=== PATIENT | male | born 1995 | race Caucasian/White ===

== ENCOUNTER 2017-10-14 19:43 | Emergency (ER) | payer OTHER, SELFPAY ==
--- NOTE | 2017-10-14 20:07 | RAD REPORT ---
EXAM DESCRIPTION: CT - CTHCSPWOC - 10/14/2017 7:58 pm CLINICAL HISTORY: Trauma, head and neck injury. COMPARISON: None. TECHNIQUE: Axial 5 mm thick images of the head were obtained. Axial 2 mm thick images of the cervical spine were obtained with sagittal and coronal reconstruction images generated and reviewed. All CT scans are performed using dose optimization technique as appropriate and may include automated exposure control or mA/KV adjustment according to patient size. FINDINGS: CT HEAD WITHOUT CONTRAST: No acute hemorrhage, hydrocephalus or extra-axial collection is identified.No areas of brain edema or midline shift. The paranasal sinuses and mastoids are clear.The calvarium is intact. CT CERVICAL SPINE WITHOUT CONTRAST: No fracture or subluxation.No prevertebral soft tissues swelling is identified. IMPRESSION: No acute intracranial or cervical spine findings.
[2017-10-14] MEDS ORDERED: CEFAZOLIN SODIUM 1 GM/VIAL ONE (20:19)
[2017-10-14] MEDS ORDERED: TETANUS & DIPHTHERIA TOX,ADULT 0.5 ML VIAL ONE (20:20)
[2017-10-14] MEDS ORDERED: WATER FOR INJ,STERILE 10 ML ONE (20:22)
[2017-10-14] MEDS ORDERED: LIDOCAINE 1% 20 ML MDV ONE (20:43)
--- NOTE | 2017-10-14 21:09 | RAD REPORT ---
EXAM DESCRIPTION: CT - CTFB CLINICAL HISTORY: Trauma, facial pain and injury. COMPARISON: None. TECHNIQUE: Axial 2 mm thick images of the face were obtained with sagittal and coronal reconstructio n images. All CT scans are performed using dose optimization technique as appropriate and may include automated exposure control or mA/KV adjustment according to patient size. FINDINGS: Slight nasal bone deformity is noted, age uncertain.Elsewhere, no facial bone fracture see n.The mandible is intact. The globes and orbital contents are grossly unremarkable.The paranasal sinuses and mastoids are essen tially clear. IMPRESSION: Mild nasal bone for deformity is seen, age uncertain.Advise correlation with clinical po int tenderness in this region. Elsewhere, no evidence of acute facial fracture seen.
--- NOTE | 2017-10-14 23:19 | ER ---
Nurse's Notes [facility] Name: Ramón Mast Age: 22 yrs Sex: Male : 1995 Arrival Date: 10/14/2017 Time: 19:44 Bed 25 Private MD: Diagnosis: Other specified injuries of head;Contusion of unspecified part of head Presentation: 10/14 19:53 Presenting complaint: Friend states: "He got bucked from a horse and doesn't remember lk1 it. His head is bleeding." LOC for 2 minutes. Care prior to arrival: None. Mechanism of Injury: Fall from horse, approximately 4 ft. Trauma event details: Injury occurred in the [facility], Injury occurred: at home. Injury occurred: October 14, 2017 Injury occurred at: 19:15. 19:53 Acuity: VANESA 2 lk1 19:53 Method Of Arrival: Wheelchair lk1 21:18 Transition of care: patient was not received from another setting of care. Onset of rk2 symptoms was October 14, 2017. Risk Assessment: Do you want to hurt yourself or someone else? Patient reports no desire to harm self or others. Initial Sepsis Screen: Does the patient meet any 2 criteria? No. Patient's initial sepsis screen is negative. Does the patient have a suspected source of infection? No. Patient's initial sepsis screen is negative. Triage Assessment: 21:15 General: Appears in no apparent distress. uncomfortable, well developed, well rk2 nourished, Behavior is calm, cooperative. Pain:. Neuro: Level of Consciousness is alert, obeys commands, Oriented to person, place, time. Respiratory: Airway is patent Respiratory effort is even, unlabored, Respiratory pattern is regular, symmetrical. Derm: Skin is pink, warm \\T\\ dry. Injury Description: Laceration sustained to face. Historical: - Allergies: 21:20 No Known Allergies; rk2 - Home Meds: 21:20 None [Active]; rk2 - Immunization history:: Last tetanus immunization: up to date. - Social history:: Smoking status: unknown. Screenin:14 Abuse screen: Denies threats or abuse. Nutritional screening: No deficits noted. rk2 Tuberculosis screening: No symptoms or risk factors identified. Fall Risk None identified. Primary Survey: 19:55 A: Airway: patent. Breathing/Chest: Respiratory pattern: regular, Respiratory effort: lk1 spontaneous, unlabored, Chest inspection: symmetrical rise and fall of the chest. Circulation: Pulses: palpable right radial artery, right brachial artery, right dorsalis pedis artery, left radial artery, left brachial artery and left dorsalis pedis artery. Skin color: pink, Skin temperature: warm, dry. Circulation: Heart tones present. Disability Alert. Assessment: 20:00 Reassessment: Pt. taken to CT. rk2 21:57 Reassessment: Patient appears in no apparent distress at this time. No changes from rk2 previously documented assessment. Patient and/or family updated on plan of care and expected duration. Pain level reassessed. 23:00 Reassessment: Patient appears in no apparent distress at this time. No changes from rk2 previously documented assessment. Facial lac irrigated and sutures to be placed by Silverio. Vital Signs: 19:56 BP 156 / 73; Pulse 74; Resp 20; Temp 99.1(O); Pulse Ox 97% on R/A; Weight 113.4 kg (R); lk1 Height 6 ft. 3 in. (190.50 cm) (R); Pain 3/10; 21:56 BP 156 / 73; Pulse 67; Resp 17; Pulse Ox 99% on R/A; rk2 23:32 BP 125 / 48; Pulse 61; Resp 17; Pulse Ox 97% on R/A; rk2 19:56 Body Mass Index 31.25 (113.40 kg, 190.50 cm) lk1 Richards Coma Score: 19:56 Eye Response: spontaneous(4). Verbal Response: oriented(5). Motor Response: obeys lk1 commands(6). Total: 15. Trauma Score (Adult): 19:56 Eye Response: spontaneous(1); Verbal Response: oriented(1); Motor Response: obeys lk1 commands(2); Systolic BP: > 89 mm Hg(4); Respiratory Rate: 10 to 29 per min(4); Richards Score: 15; Trauma Score: 12 ED Course: 19:44 Patient arrived in ED. am2 19:48 Andrew Monson MD is Attending Physician. rg2 19:51 Ro Mcneal, RN is Primary Nurse. rk2 19:55 Triage completed. lk1 19:[address] vm2 19:57 Arm band placed on right wrist. lk1 19:58 CT completed. Patient tolerated procedure well. Patient moved back from CT. vm2 19:59 Head C Spine Mpr Wo Con In Process Unspecified. EDMS 20:[address] via wheelchair. mw3 20:56 CT completed. Patient tolerated procedure well. Patient moved back from CT. nj 20:56 Facial Bones W/ Mpr In Process Unspecified. EDMS 21:14 Patient has correct armband on for positive identification. Placed in gown. Bed in low rk2 position. Call light in reach. Adult w/ patient. 23:02 Silverio Ace NP is PHCP. pm1 23:44 Assist provider with laceration repair on face, above right eye. Patient did not have rk2 IV access during this emergency room visit. Administered Medications: 20:27 Drug: Ancef 1 grams Route: IM; Site: left vastus lateralis; rk2 23:30 Follow up: Response: No adverse reaction rk2 20:28 Not Given (Pt. has had recent tetanus/diptheria/T shot): Tetanus-Diphtheria Toxoid rk2 Adult 0.5 ml IM once 23:29 Drug: Tylenol 1000 mg Route: PO; rk2 23:30 Follow up: given \\T\\ DC rk2 23:30 Not Given (Pt. had taken ibupropfen of his own, about 5 min before): Motrin 800 mg PO rk2 once Intake: 19:56 PO: 0ml; Total: 0ml. lk1 Output: 19:56 Urine: 0ml; Total: 0ml. lk1 Outcome: 23:19 Discharge ordered by . tw4 23:45 Discharged to home rk2 23:45 Discharged to home ambulatory. 23:45 Condition: improved 23:45 Discharge instructions given to patient, Prescriptions given X 2. 23:46 Patient left the ED. rk2 Signatures: Dispatcher [employer] EDMS Keon العلي 2 Miriam Guzmán RN RN lk1 Silverio Ace NP PLASTER LATHER pm1 Eduardo Santos Amanda am2 McGuire, Victoria 2 Andrew Monson MD MD tw4 Ro Mcneal RN RN rk2 Jasmine Kraus mw3 Corrections: (The following items were deleted from the chart) 19:55 19:54 To radiology for Head Brain Wo Cont+CT.RAD.BRZ. rk2 EDMS 19:56 19:54 To radiology for C Spine Wo Con+CT.RAD.BRZ. rk2 EDMS
--- NOTE | 2017-10-14 23:20 | EDPHYS ---
Physician Documentation [facility] Name: Ramón Mast Age: 22 yrs Sex: Male : 1995 Arrival Date: 10/14/2017 Time: 19:44 Bed 25 Private MD: ED Physician Andrew Monson HPI: 10/14 23:10 This 22 yrs old Male presents to ER via Wheelchair with complaints of Fall tw4 Injury, Altered Mental Status, Facial Injury. 23:10 Details of fall: The patient fell from a height, horse. Onset: The symptoms/episode tw4 began/occurred today. Associated injuries: The patient sustained injury to the head, laceration, 4 cm(s), of the lateral canthus of right eye. Severity of symptoms: At their worst the symptoms were moderate, in the emergency department the symptoms have improved. positive LOC. Historical: - Allergies: 21:20 No Known Allergies; rk2 - Home Meds: 21:20 None [Active]; rk2 - Immunization history:: Last tetanus immunization: up to date. - Social history:: Smoking status: unknown. ROS: 23:10 Constitutional: Negative for fever, chills, and weight loss, Cardiovascular: Negative tw4 for chest pain, palpitations, and edema, Respiratory: Negative for shortness of breath, cough, wheezing, and pleuritic chest pain, Abdomen/GI: Negative for abdominal pain, nausea, vomiting, diarrhea, and constipation, MS/Extremity: Negative for injury and deformity. 23:10 Skin: Positive for laceration(s), Negative for abrasions, abscesses, avulsion, cellulitis, diaphoresis, discoloration, ecchymosis, erythema, hematoma. 23:10 Neuro: Positive for loss of consciousness, Negative for altered mental status, dizziness, gait disturbance, headache, hearing loss, numbness, seizure activity, speech changes. Exam: 23:10 Constitutional: This is a well developed, well nourished patient who is awake, alert, tw4 and in no acute distress. 23:10 Chest/axilla: Normal chest wall appearance and motion. Nontender with no deformity. No lesions are appreciated. Cardiovascular: Regular rate and rhythm with a normal S1 and S2. No gallops, murmurs, or rubs. Normal PMI, no JVD. No pulse deficits. Respiratory: Lungs have equal breath sounds bilaterally, clear to auscultation and percussion. No rales, rhonchi or wheezes noted. No increased work of breathing, no retractions or nasal flaring. Abdomen/GI: Soft, non-tender, with normal bowel sounds. No distension or tympany. No guarding or rebound. No evidence of tenderness throughout. MS/ Extremity: Pulses equal, no cyanosis. Neurovascular intact. Full, normal range of motion. Neuro: Awake and alert, GCS 15, oriented to person, place, time, and situation. Cranial nerves II-XII grossly intact. Motor strength 5/5 in all extremities. Sensory grossly intact. Cerebellar exam normal. Normal gait. 23:10 Head/face: Noted is a laceration(s), that is deep, that is jagged, 4 cm(s), of the lateral canthus of right eye. Vital Signs: 19:56 BP 156 / 73; Pulse 74; Resp 20; Temp 99.1(O); Pulse Ox 97% on R/A; Weight 113.4 kg (R); lk1 Height 6 ft. 3 in. (190.50 cm) (R); Pain 3/10; 21:56 BP 156 / 73; Pulse 67; Resp 17; Pulse Ox 99% on R/A; rk2 23:32 BP 125 / 48; Pulse 61; Resp 17; Pulse Ox 97% on R/A; rk2 19:56 Body Mass Index 31.25 (113.40 kg, 190.50 cm) lk1 Henrry Coma Score: 19:56 Eye Response: spontaneous(4). Verbal Response: oriented(5). Motor Response: obeys lk1 commands(6). Total: 15. Trauma Score (Adult): 19:56 Eye Response: spontaneous(1); Verbal Response: oriented(1); Motor Response: obeys lk1 commands(2); Systolic BP: > 89 mm Hg(4); Respiratory Rate: 10 to 29 per min(4); [place] Score: 15; Trauma Score: 12 Laceration: 23:03 Wound Repair of 3cm ( 1.2in ) subcutaneous laceration to lateral aspect of right pm1 orbital area. Irregularly shaped.. Distal neuro/vascular/tendon intact. Anesthesia: Local anesthetic administered with 2 mls of 1% lidocaine. Wound prep: Extensive cleansing by me, Wound irrigation by me, Wound explored extensively, Copious irrigation. Skin closed with 7 6-0 Prolene using simple sutures and sterile technique. Patient tolerated well. MDM: 19:50 Patient medically screened. tw4 23:10 Differential diagnosis: closed head injury, fracture, laceration, multiple trauma. Data tw4 reviewed: vital signs, nurses notes. Counseling: I had a detailed discussion with the patient and/or guardian regarding: the historical points, exam findings, and any diagnostic results supporting the discharge/admit diagnosis, radiology results. 23:17 Special discussion: Based on the patient's history, exam and DX evaluation, there is no tw4 indication for emergent intervention or inpatient TX. It is understood by the patient/guardian that if the SXs persist or worsen they need to return immediately for re-evaluation. I discussed with the patient/guardian in detail that at this point there is no indication for admission to the hospital. It is understood, however, that if the symptoms persist or worsen the patient needs to return immediately for re-evaluation. ED course: Pt states that he feels well. 10/14 19:55 Order name: Head C Spine Mpr Wo Con; Complete Time: 23:10 EDMS 10/14 20:16 Order name: Facial Bones W/ Mpr; Complete Time: 23:10 EDMS Administered Medications: 20:27 Drug: Ancef 1 grams Route: IM; Site: left vastus lateralis; rk2 23:30 Follow up: Response: No adverse reaction rk2 20:28 Not Given (Pt. has had recent tetanus/diptheria/T shot): Tetanus-Diphtheria Toxoid rk2 Adult 0.5 ml IM once 23:29 Drug: Tylenol 1000 mg Route: PO; rk2 23:30 Follow up: given \T\ DC rk2 23:30 Not Given (Pt. had taken ibupropfen of his own, about 5 min before): Motrin 800 mg PO rk2 once Disposition: 23:17 Co-signature as Attending Physician, Andrew Monson MD I agree with the assessment and tw4 plan of care. Disposition: 10/14/17 23:19 Discharged to Home. Impression: Other specified injuries of head, Contusion of unspecified part of head. - Condition is Stable. - Discharge Instructions: Head Injury, Adult, Facial Laceration, [id number], Head Injury, Adult, [id number]. - Prescriptions for Clindamycin HCl 300 mg Oral Capsule - take 1 capsule by ORAL route every 6 hours for 10 days; 40 capsule. Ibuprofen 800 mg Oral Tablet - take 1 tablet by ORAL route every 8 hours As needed take with food; 30 tablet. - Medication Reconciliation Form, Thank You Letter, Antibiotic Education, Prescription Opioid Use form. - Follow up: Private Physician; When: As needed; Reason: Recheck today's complaints, Continuance of care, Re-evaluation by your physician. - Problem is new. - Symptoms have improved. Signatures: Dispatcher [employer] EDMS Silverio Ace, VENDING MACHINE TECHNICIAN VENDING MACHINE TECHNICIAN pm1 Andrew Monson MD MD tw4 Ro Mcneal RN RN rk2 Corrections: (The following items were deleted from the chart) 19:55 19:51 Head Brain Wo Cont+CT.RAD.BRZ ordered. EDME EDMS 19:56 19:51 C Spine Wo Con+CT.RAD.BRZ ordered. EDME EDMS 20:16 20:12 Maxillofacial W/Wo+CT.RAD.BRZ ordered. EDME EDMS 23:46 23:19 10/14/2017 23:19 Discharged to Home. Impression: Other specified injuries of rk2 head; Contusion of unspecified part of head. Condition is Stable. Forms are Medication Reconciliation Form, Thank You Letter, Antibiotic Education, Prescription Opioid Use. Follow up: Private Physician; When: As needed; Reason: Recheck today's complaints, Continuance of care, Re-evaluation by your physician. Problem is new. Symptoms have improved. tw4
[2017-10-14] MEDS ORDERED: IBUPROFEN 400 MG TAB ONE (23:27)
[2017-10-14] MEDS ORDERED: ACETAMINOPHEN 500 MG TAB ONE (23:27)
== END 2017-10-14 23:46 | disposition home or self-care (01) ==
LOC: ER 19:43
PROC: 0JQ10ZZ Repair Face Subcutaneous Tissue and Fascia, Open Approach (ICD-10-PCS; principal; 2017-10-14)
DX: S05.41XA Penetrating wound of orbit with or without foreign body, right eye, initial encounter (principal); V80.010A Animal-rider injured by fall from or being thrown from horse in noncollision accident, initial encounter; Y93.9 Activity, unspecified; Y92.9 Unspecified place or not applicable; Z23 Encounter for immunization
CPT/HCPCS: 70450; 70486; 72125; 76377; 90714; 96372; 99284; J0690

== ENCOUNTER 2021-06-27 13:45 | Emergency (ER) | payer SELFPAY ==
[2021-06-27 15:19] LABS: Albumin 3.9 g/dL (3.4-5.0); Bilirubin Direct 0.1 mg/dL (0-0.2); Bilirubin Total 0.6 mg/dL (0.2-1.0); Hematocrit 42.4 % (39.6-49.0); Lymphocytes % 41.3 % (15.3-44.8); MPV 9.9 fL (7.6-11.3); Potassium 3.9 mmol/L (3.5-5.1); Protein, Total 7.5 g/dL (6.4-8.2); RBC Red Blood Cell Count 4.86 M/uL (4.33-5.43); Troponin High Sensitivity 7.6 pg/mL (<58.9)
[2021-06-27 15:20] LABS: Protime INR 1.07
--- NOTE | 2021-06-27 15:26 | RAD REPORT ---
EXAM DESCRIPTION: RAD - Chest Single View - 06/27/2021 3:16 pm CLINICAL HISTORY: CHEST PAIN Chest pain. COMPARISON: Chest Pa And Lat (2 Views) dated 12/13/2015 FINDINGS: Portable technique limits examination quality. The lungs are grossly clear. The heart is normal in size. No displaced fractures. IMPRESSION: No acute intrathoracic process suspected.
--- NOTE | 2021-06-27 18:12 | ER ---
Nurse's Notes [facility] Name: Ramón Mast Age: 25 yrs Sex: Male : 1995 Arrival Date: 06/27/2021 Time: 13:48 Bed 10 Private MD: Diagnosis: Chest pain, unspecified Presentation: 06/27 13:59 Chief complaint: Patient states: Chest pain X 1 day - Comes and goes. Hurts when move ld1 right arm or bend down. Coronavirus screen: At this time, the client does not indicate any symptoms associated with coronavirus-19. Ebola Screen: No symptoms or risks identified at this time. Initial Sepsis Screen: Does the patient meet any 2 criteria? Yes No. Patient's initial sepsis screen is negative. Does the patient have a suspected source of infection? No. Patient's initial sepsis screen is negative. Risk Assessment: Do you want to hurt yourself or someone else? Patient reports no desire to harm self or others. Onset of symptoms was June 27, 2021. 13:59 Method Of Arrival: Ambulatory ld1 13:59 Acuity: VANESA 3 ld1 Triage Assessment: 14:00 General: Appears in no apparent distress. comfortable, Behavior is calm, cooperative, ld1 appropriate for age. Pain: Complains of pain in chest Pain does not radiate. Pain currently is 0 out of 10 on a pain scale. at worst was 8 out of 10 on a pain scale. Quality of pain is described as sharp, Pain began 3 hours ago. Is intermittent. Neuro: Level of Consciousness is awake, alert, obeys commands, Oriented to person, place, time, situation. Cardiovascular: Capillary refill < 3 seconds Patient's skin is warm and dry. Rhythm is regular. Respiratory: Airway is patent Respiratory effort is even, unlabored, Respiratory pattern is regular, symmetrical. Historical: - Allergies: 14:00 No Known Allergies; ld1 - Home Meds: 14:00 None [Active]; ld1 - PMHx: 14:00 None; ld1 - Immunization history:: Adult Immunizations up to date, Client reports having NOT received the Covid vaccine. - Social history:: Smoking status: Reported history of juuling and/or vaping. Patient uses alcohol, occasionally. Screenin:30 Abuse screen: Denies threats or abuse. Denies injuries from another. Nutritional ww screening: No deficits noted. Tuberculosis screening: No symptoms or risk factors identified. Fall Risk None identified. Assessment: 14:30 General: Appears in no apparent distress. Behavior is calm, cooperative. Pain: ww Complains of pain in mid-sternal area Pain radiates to anterior aspect of right upper chest and right breast. Neuro: Level of Consciousness is awake, alert, obeys commands, Oriented to person, place, time, situation, Speech is normal. Cardiovascular: Reports chest pain, Capillary refill < 3 seconds Patient's skin is warm and dry. Chest pain quality is sharp, is located in substernal area radiates to right. Respiratory: Airway is patent Respiratory effort is even, unlabored, Respiratory pattern is regular, symmetrical. GI: No signs and/or symptoms were reported involving the gastrointestinal system. : No signs and/or symptoms were reported regarding the genitourinary system. Derm: Skin is intact, is healthy with good turgor, Skin is pink, warm \T\ dry. 15:41 Reassessment: Patient appears in no apparent distress at this time. No changes from ww previously documented assessment. Patient and/or family updated on plan of care and expected duration. Pain level reassessed. Patient is alert, oriented x 3, equal unlabored respirations, skin warm/dry/pink. 16:56 Reassessment: Patient appears in no apparent distress at this time. No changes from ww previously documented assessment. Patient and/or family updated on plan of care and expected duration. Pain level reassessed. Patient is alert, oriented x 3, equal unlabored respirations, skin warm/dry/pink. 17:40 Reassessment: Patient appears in no apparent distress at this time. No changes from ww previously documented assessment. Patient and/or family updated on plan of care and expected duration. Pain level reassessed. Patient is alert, oriented x 3, equal unlabored respirations, skin warm/dry/pink. Vital Signs: 13:59 BP 144 / 76; Pulse 62; Resp 18; Temp 98.4(O); Pulse Ox 97% on R/A; Weight 141.52 kg; ld1 Height 6 ft. 2 in. (187.96 cm); Pain 0/10; 16:53 BP 131 / 64; Pulse 55; Resp 18; Pulse Ox 99% on R/A; ww 13:59 Body Mass Index 40.06 (141.52 kg, 187.96 cm) ld1 ED Course: 13:48 Patient arrived in ED. mr 14:00 Triage completed. ld1 14:00 Arm band placed on left wrist. ld1 14:03 Joseph Peterson PA is PHCP. cp 14:03 Rodrigo Richardson MD is Attending Physician. cp 14:30 Patient has correct armband on for positive identification. Placed in gown. Bed in low ww position. Call light in reach. Side rails up X 1. Adult w/ patient. school bus monitor on. Pulse ox on. NIBP on. 14:30 No provider procedures requiring assistance completed. Inserted saline lock: 20 gauge ww in left antecubital area, using aseptic technique. Blood collected. Patient maintains SpO2 saturation greater than 95% on room air. 14:40 Dede Powers, RN is Primary Nurse. ww 15:16 XRAY Chest (1 view) In Process Unspecified. EDMS 18:19 intact, bleeding controlled, No redness/swelling at site. Pressure dressing applied. ww Administered Medications: No medications were administered Outcome: 18:05 Discharge ordered by . cp 18:19 Discharged to home ambulatory, with family. ww 18:19 Condition: stable 18:19 Discharge instructions given to patient, family, Instructed on discharge instructions, follow up and referral plans. medication usage, safety practices, Demonstrated understanding of instructions, follow-up care, medications, Prescriptions given X 1. 18:19 Patient left the ED. ww Signatures: Dispatcher [employer] EDDC Mary Liriano mr Joseph Peterson PA PA cp Dibbern, Lauren, RN RN ld1 Dede Powers, RN RN ww
--- NOTE | 2021-06-27 18:12 | EDPHYS ---
Physician Documentation [facility] Name: Ramón Mast Age: 25 yrs Sex: Male : 1995 Arrival Date: 06/27/2021 Time: 13:48 Bed 10 Private MD: ED Physician Rodrigo Richardson HPI: 06/27 14:45 This 25 yrs old Male presents to ER via Ambulatory with complaints of Chest cp Pain. 14:45 The patient or guardian reports chest pain that is located primarily in the substernal cp area. 14:45 The pain radiates to right side of chest. cp 14:45 Associated signs and symptoms: Pertinent positives: shortness of breath, Pertinent cp negatives: abdominal pain, cough, diaphoresis, dizziness, lower extremity pain, lower extremity swelling, syncope. The chest pain is described as aching. Duration: The patient or guardian reports multiple episodes, that wax and wane. Modifying factors: the symptoms are aggravated by leaning forward and lifting/raising right arm. 14:45 Severity of pain: in the emergency department the pain has improved moderately. cp Historical: - Allergies: 14:00 No Known Allergies; ld1 - Home Meds: 14:00 None [Active]; ld1 - PMHx: 14:00 None; ld1 - Immunization history:: Adult Immunizations up to date, Client reports having NOT received the Covid vaccine. - Social history:: Smoking status: Reported history of juuling and/or vaping. Patient uses alcohol, occasionally. ROS: 14:50 Constitutional: Negative for body aches, chills, fever, poor PO intake. cp 14:50 Eyes: Negative for injury, pain, redness, and discharge. cp 14:50 ENT: Negative for drainage from ear(s), ear pain, sore throat, difficulty swallowing, difficulty handling secretions. 14:50 Cardiovascular: Positive for chest pain, of the mid-sternal area radiating to right side, Negative for edema, palpitations. 14:50 Respiratory: Negative for cough, shortness of breath, wheezing. 14:50 Abdomen/GI: Negative for abdominal pain, nausea, vomiting, and diarrhea. 14:50 Back: Negative for pain at rest, pain with movement, radiated pain. 14:50 Neuro: Negative for altered mental status, headache, syncope, weakness. 14:50 All other systems are negative. Exam: 14:33 ECG was reviewed by the Attending Physician. cp 14:55 Constitutional: The patient appears in no acute distress, alert, awake, cp non-diaphoretic, non-toxic, well developed, well nourished. 14:55 Head/Face: Normocephalic, atraumatic. cp 14:55 Eyes: Periorbital structures: appear normal, Conjunctiva: normal, no exudate, no injection, Sclera: no appreciated abnormality, Lids and lashes: appear normal, bilaterally. 14:55 ENT: External ear(s): are unremarkable, Nose: is normal, Mouth: Lips: moist, Oral mucosa: pink and intact, moist, Posterior pharynx: Airway: no evidence of obstruction, patent. 14:55 Neck: ROM/movement: is normal, is supple, without pain, no range of motions limitations. 14:55 Chest/axilla: Inspection: normal, Palpation: crepitus, is not appreciated, tenderness, that is mild, of the anterior aspect of right upper chest and right breast. 14:55 Cardiovascular: Rate: normal, Rhythm: regular, Heart sounds: murmur, not appreciated, Edema: is not appreciated, JVD: is not appreciated. 14:55 Respiratory: the patient does not display signs of respiratory distress, Respirations: normal, no use of accessory muscles, no retractions, labored breathing, is not present, Breath sounds: are clear throughout, no decreased breath sounds, no stridor, no wheezing. 14:55 Abdomen/GI: Inspection: abdomen appears normal, Palpation: abdomen is soft and non-tender, in all quadrants. 14:55 Back: pain, is absent, ROM is normal. 14:55 Neuro: Orientation: to person, place \T\ time. Mentation: is normal, Motor: moves all fours, strength is normal, Sensation: is normal. Vital Signs: 13:59 BP 144 / 76; Pulse 62; Resp 18; Temp 98.4(O); Pulse Ox 97% on R/A; Weight 141.52 kg; ld1 Height 6 ft. 2 in. (187.96 cm); Pain 0/10; 16:53 BP 131 / 64; Pulse 55; Resp 18; Pulse Ox 99% on R/A; ww 13:59 Body Mass Index 40.06 (141.52 kg, 187.96 cm) ld1 MDM: 14:04 Patient medically screened. cp 15:00 Differential diagnosis: acute myocardial infarction, acute pericarditis, chest wall cp pain, cholecystitis, Cholelithiasis costochondritis, pericarditis, pleurisy, pneumonia, pneumothorax, pulmonary embolus. 18:05 Data reviewed: vital signs, nurses notes, lab test result(s), EKG, radiologic studies, cp plain films. 18:05 Test interpretation: by ED physician or midlevel provider: ECG, plain radiologic cp studies. Counseling: I had a detailed discussion with the patient and/or guardian regarding: the historical points, exam findings, and any diagnostic results supporting the discharge/admit diagnosis, lab results, radiology results, to return to the emergency department if symptoms worsen or persist or if there are any questions or concerns that arise at home. Special discussion: Based on the patient's history, exam, and Dx evaluation, there is no indication for emergent intervention or inpatient Tx. It is understood by the patient/guardian that if the Sx's persist or worsen they need to return immediately for re-evaluation. ED course: VSS. Patient denies family history of cardiac disease and/or early cardiac . Pain improved. Will treat with NSAIDs and discharge to home for continued monitoring. 06/27 14:35 Order name: D-Dimer 06/27 14:35 Order name: XRAY Chest (1 view); Complete Time: 17:10 06/27 17:12 Interpretation: Report reviewed. 06/27 14:35 Order name: EKG; Complete Time: 14:54 06/27 14:35 Order name: Cardiac monitoring; Complete Time: 14:51 06/27 14:53 Order name: Basic Metabolic Panel; Complete Time: 17:10 EDMS 06/27 17:10 Interpretation: Normal except: BUN 21; GFR 81. 06/27 14:53 Order name: Liver (Hepatic) Function; Complete Time: 17:10 EDMS 06/27 17:10 Interpretation: Normal except: GLOB 3.6. cp 06/27 14:53 Order name: Troponin High Sensitivity; Complete Time: 17:10 EDMS 06/27 17:11 Interpretation: Within normal limits: Troponin HS 7.60. 06/27 14:53 Order name: CBC with Automated Diff; Complete Time: 17:10 EDWV 06/27 18:08 Interpretation: Reviewed. cp 06/27 14:53 Order name: Protime (+INR); Complete Time: 17:10 EDWV 06/27 14:35 Order name: EKG - Nurse/Tech; Complete Time: 14:40 cp 06/27 14:35 Order name: IV Saline Lock; Complete Time: 14:40 cp 06/27 14:35 Order name: Labs collected and sent; Complete Time: 14:41 cp 06/27 14:35 Order name: O2 Per Protocol; Complete Time: 14:41 cp 06/27 14:35 Order name: O2 Sat Monitoring; Complete Time: 14:41 cp EC:33 Rate is 56 beats/min. Rhythm is regular. ND interval is normal. QRS interval is normal. cp QT interval is normal. Interpreted by me. Reviewed by me. Administered Medications: No medications were administered Disposition Summary: 06/27/21 18:05 Discharge Ordered Location: Home cp Problem: new cp Symptoms: have improved cp Condition: Stable cp Diagnosis - Chest pain, unspecified cp Followup: cp - With: Private Physician - When: 2 - 3 days - Reason: Worsening of condition Discharge Instructions: - Discharge Summary Sheet cp - Nonspecific Chest Pain, Adult cp Forms: - Medication Reconciliation Form cp - Thank You Letter cp - Antibiotic Education cp - Prescription Opioid Use cp Prescriptions: - Diclofenac Sodium 75 mg Oral Tablet Sustained Release - take 1 tablet by ORAL route 2 times per day; 30 tablet; Refills: 0, Product cp Selection Permitted Addendum: 07/01/2021 07:08 Co-signature as Attending Physician, Rodrigo Richardson MD I agree with the assessment and r n plan of care. Attestation: The patient's history, exam findings, diagnostics, and a summary of any interventions or procedures was reviewed in detail with Joseph UMAÑA. Signatures: Dispatcher [employer] Rodrigo Demarco MD MD rn Page, Corey, PA PA cp Yohana Cadena RN RN ld1 Corrections: (The following items were deleted from the chart) 06/27 18:09 14:54 BASIC METABOLIC PANEL+C.LAB.BRZ ordered. EDWV EDMS 18:09 14:54 CBC+H.LAB.BRZ ordered. EDWV EDMS 18:09 14:54 HEPATIC FUNCTION+C.LAB.BRZ ordered. EDMS EDMS 14:54 PROTIME (+INR)+COAG.LAB.BRZ ordered. EDMS EDMS :54 Troponin High Sensitivity+C.LAB.BRZ ordered. EDMS EDMS
[2021-06-27 19:03] VITALS: TEMP 98.4
[2021-06-27 19:05] VITALS: BP 131/64; O2SAT 99
--- NOTE | 2021-06-28 13:06 | EKG ---
Test Date: 2021-06-27 Test Time: 14:28:21 Touch Up Worker: GEMINI MEASUREMENT RESULTS: Intervals: Rate: 56 KS: 154 QRSD: 92 QT: 394 QTc: 380 [place]: P: 30 KS: 154 QRS: 68 T: 37 INTERPRETIVE STATEMENTS: Sinus bradycardia Nonspecific ST and T wave abnormality Abnormal ECG Compared to ECG 12/13/2015 19:02:16 ST (T wave) deviation now present Sinus rhythm no longer present Sinus arrhythmia no longer present T-wave abnormality no longer present Electronically Signed On 06-28-21 13:03:13 DRY ROOM ATTENDANT by Janusz Macias
== END 2021-06-27 18:19 | disposition home or self-care (01) ==
LOC: ER 13:45
DX: R07.9 Chest pain, unspecified (principal); Z72.0 Tobacco use
CPT/HCPCS: 36415; 71045; 80048; 80076; 84484; 85025; 85379; 85610; 93005; 99285

== ENCOUNTER 2024-08-01 20:40 | Emergency (ER) | payer OTHER, SELFPAY ==
--- NOTE | 2024-08-01 21:28 | ER ---
Nurse's Notes [facility] Name: Ramón Mast Age: 28 yrs Sex: Male : 1995 Arrival Date: 08/01/2024 Time: 20:40 Bed DX4 Private MD: Diagnosis: Acute pharyngitis, unspecified Presentation: 08/01 21:20 Chief complaint: Patient states: pressure under my ear, it's mildly tender , was on a iw steroid pack prescribed by urgent care, they said it was from my throat, when i swallow i fell pressure on that side. Coronavirus screen: At this time, the client does not indicate any symptoms associated with coronavirus-19. Ebola Screen: No symptoms or risks identified at this time. Initial Sepsis Screen: Does the patient meet any 2 criteria? No. Patient's initial sepsis screen is negative. Does the patient have a suspected source of infection? No. Patient's initial sepsis screen is negative. Risk Assessment: Do you want to hurt yourself or someone else? Patient reports no desire to harm self or others. Onset of symptoms was July 29, 2024. 21:20 Method Of Arrival: Ambulatory iw 21:20 Acuity: VANESA 3 iw Historical: - Allergies: 21:22 No Known Allergies; iw - Home Meds: 21:22 None [Active]; iw - PMHx: 21:22 None; iw - PSHx: 21:22 None; iw - Immunization history:: Adult Immunizations not up to date. - Infectious Disease History:: Denies. - Social history:: Smoking status: Reported history of juuling and/or vaping. - Family history:: not pertinent. Screenin:57 [facility] ED Fall Risk Assessment (Adult) History of falling in the last 3 months, ha1 including since admission No falls in past 3 months (0 pts) Confusion or Disorientation No (0 pts) Intoxicated or Sedated No (0 pts) Impaired Gait No (0 pts) Mobility Assist Device Used No (0 pt) Altered Elimination No (0 pt) Score/Fall Risk Level 0 - 2 = Low Risk Oriented to surroundings, Maintained a safe environment, Educated pt \T\ family on fall prevention, incl call for assistance when getting out of bed, Hourly rounding (assess needs \T\ fall precautionary measures) done. Abuse screen: Denies threats or abuse. Denies injuries from another. Nutritional screening: No deficits noted. Tuberculosis screening: No symptoms or risk factors identified. Assessment: 21:40 General: Appears comfortable, Behavior is calm, cooperative. Pain: Complains of pain in ha1 sore throat Pain does not radiate. Pain currently is 6 out of 10 on a pain scale. Neuro: Level of Consciousness is awake, alert, obeys commands, Oriented to person, place, time, situation. Cardiovascular: Capillary refill < 3 seconds Patient's skin is warm and dry. Respiratory: Airway is patent Respiratory effort is even, unlabored, Respiratory pattern is regular, symmetrical. GI: No signs and/or symptoms were reported involving the gastrointestinal system. : No signs and/or symptoms were reported regarding the genitourinary system. Vital Signs: 21:20 BP 139 / 85; Pulse 62; Resp 16; Temp 97.6; Pulse Ox 100% on R/A; Weight 117.93 kg; iw Height 6 ft. 2 in. ; Pain 8/10; 21:20 Body Mass Index 33.38 (117.93 kg, 187.96 cm) iw 21:20 Pain Scale: Adult iw ED Course: 20:50 Patient arrived in ED. im 20:53 Shashank Lara MD is Attending Physician. rt 21:18 Arm band placed on right wrist. ha1 21:18 Patient has correct armband on for positive identification. Call light in reach. Side ha1 rails up X 1. Adult w/ patient. 21:22 Triage completed. iw 21:30 Provided Education on: medication administration . ha1 21:57 No provider procedures requiring assistance completed. Patient did not have IV access ha1 during this emergency room visit. Administered Medications: 21:50 Drug: Amoxicillin PO 875 mg PO once Route: PO; ha1 22:06 Follow up: Response: No adverse reaction ha1 Medication: 21:58 VIS not applicable for this client. ha1 Outcome: 21:28 Discharge ordered by . rt 21:57 Discharged to home ambulatory, with family, ha1 21:57 Condition: stable 21:57 Discharge instructions given to patient, family, Instructed on discharge instructions, follow up and referral plans. medication usage, Demonstrated understanding of instructions, follow-up care, medications, Prescriptions given X 1, 22:07 Patient left the ED. ha1 Signatures: Tyesha Larsen RN RN iw Joan Hale RN RN ha1 Shashank Lara MD MD rt Shanae Stephens
--- NOTE | 2024-08-01 21:28 | EDPHYS ---
Physician Documentation [facility] Name: Ramón Mast Age: 28 yrs Sex: Male : 1995 Arrival Date: 08/01/2024 Time: 20:40 Bed DX4 Private MD: ED Physician Shashank Lara HPI: 08/02 03:34 This 28 yrs old Male presents to ER via Ambulatory with complaints of Facial Swelling. rt 03:34 Patient presents to the ED with pain to the right side of the jaw just beneath the ear rt worse when he opens his mouth. Reports a mild sore throat. Was seen at urgent care, was given steroids initially improved his symptoms, now states that they are worsening. Denies ear pain, other acute complaints, symptoms are mild in severity, aching nature, nonradiating, no other aggravating or alleviating factors.. Historical: - Allergies: 08/01 21:22 No Known Allergies; iw - Home Meds: 21:22 None [Active]; iw - PMHx: 21:22 None; iw - PSHx: 21:22 None; iw - Immunization history:: Adult Immunizations not up to date. - Infectious Disease History:: Denies. - Social history:: Smoking status: Reported history of juuling and/or vaping. - Family history:: not pertinent. ROS: 08/02 03:34 Constitutional: Negative for fever, chills, and weight loss, Cardiovascular: Negative rt for chest pain, palpitations, and edema, Respiratory: Negative for shortness of breath, cough, wheezing, and pleuritic chest pain, Abdomen/GI: Negative for abdominal pain, nausea, vomiting, diarrhea, and constipation, MS/Extremity: Negative for injury and deformity, Skin: Negative for injury, rash, and discoloration, Neuro: Negative for headache, weakness, numbness, tingling, and seizure, ENT: Positive for rhinorrhea, sore throat, Exam: 03:34 Constitutional: This is a well developed, well nourished patient who is awake, alert, rt and in no acute distress. Head/Face: Normocephalic, atraumatic. ENT: Nares patent. No nasal discharge, no septal abnormalities noted. Tympanic membranes are normal and external auditory canals are clear. Oropharynx with no redness, swelling, or masses, exudates, or evidence of obstruction, uvula midline. Mucous membranes moist. Cardiovascular: Regular rate and rhythm with a normal S1 and S2. No gallops, murmurs, or rubs. Normal PMI, no JVD. No pulse deficits. Respiratory: Lungs have equal breath sounds bilaterally, clear to auscultation and percussion. No rales, rhonchi or wheezes noted. No increased work of breathing, no retractions or nasal flaring. Abdomen/GI: Soft, non-tender, with normal bowel sounds. No distension or tympany. No guarding or rebound. No evidence of tenderness throughout. Skin: Warm, dry with normal turgor. Normal color with no rashes, no lesions, and no evidence of cellulitis. MS/ Extremity: Pulses equal, no cyanosis. Neurovascular intact. Full, normal range of motion. Neuro: Awake and alert, GCS 15, oriented to person, place, time, and situation. Cranial nerves II-XII grossly intact. Motor strength 5/5 in all extremities. Sensory grossly intact. Cerebellar exam normal. Normal gait. 03:34 ENT: Mild posterior pharyngeal erythema without exudates tonsil hypertrophy, uvula is midline. 03:34 Neck: Trachea midline, 1 palpable tender lymph node at the area of concern, Vital Signs: 08/01 21:20 BP 139 / 85; Pulse 62; Resp 16; Temp 97.6; Pulse Ox 100% on R/A; Weight 117.93 kg; iw Height 6 ft. 2 in. ; Pain 8/10; 21:20 Body Mass Index 33.38 (117.93 kg, 187.96 cm) iw 21:20 Pain Scale: Adult iw MDM: 21:22 Medical Screening Exam initiated rt 08/02 03:34 Differential Diagnosis Pharyngitis, otitis, viral syndrome. Data reviewed: vital signs, rt nurses notes. Test considered but Not performed: CT: No clinical signs or symptoms to suggest malignant OE, mastoiditis, RPA, COMPUTER CONSULTANT, Luis Carlos's angina, CT scan is not indicated. Counseling: I had a detailed discussion with the patient and/or guardian regarding the historical points, exam findings, and any diagnostic results supporting the discharge/admit diagnosis, the need for outpatient follow up, to return to the emergency department if symptoms worsen or persist or if there are any questions or concerns that arise at home. Administered Medications: 08/01 21:50 Drug: Amoxicillin PO 875 mg PO once Route: PO; ha1 22:06 Follow up: Response: No adverse reaction ha1 Disposition Summary: 08/01/24 21:28 Discharge Ordered Notes: Location: Home rt Problem: new rt Symptoms: are unchanged rt Condition: Stable rt Diagnosis - Acute pharyngitis, unspecified rt Followup: rt - With: Private Physician - When: 2 - 3 days - Reason: Discharge Instructions: - Discharge Summary Sheet rt - Pharyngitis rt Forms: - Medication Reconciliation Form rt - Antibiotic Education rt - Prescription Opioid Use rt - Patient Portal Instructions rt - Leadership Thank You Letter rt Prescriptions: - Amoxicillin 875 mg Oral Tablet - take 1 tablet ORAL route every 12 hours for 10 days; 20 tablet; Refills: 0, rt Product Selection Permitted Signatures: Tyesha Larsen RN RN iw Joan Hale RN RN ha1 Shashank Lara MD MD rt
[2024-08-01] MEDS ORDERED: AMOX/K CLAV 875 MG TAB ONE (21:51)
[2024-08-01 22:11] VITALS: BP 139/85; TEMP 97.6; O2SAT 100
== END 2024-08-01 22:07 | disposition home or self-care (01) ==
LOC: ER 20:40
DX: J02.9 Acute pharyngitis, unspecified (principal)
CPT/HCPCS: 99283

== ENCOUNTER 2024-08-03 10:02 | Emergency (ER) | payer OTHER ==
[2024-08-03] MEDS ORDERED: dexAMETHasone 10 MG/ML VIAL ONE ×2 (10:40→13:00)
[2024-08-03] MEDS ORDERED: FAMOTIDINE 20 MG/2 ML VIAL IV ONE (10:40)
[2024-08-03] MEDS ORDERED: ONDANSETRON 4 MG/2 ML VIAL ONE (10:40)
[2024-08-03] MEDS ORDERED: CEFTRIAXONE 2000 MG/VIAL ONE (10:40)
[2024-08-03] MEDS ORDERED: KETOROLAC 30 MG/ML INJ ONE (10:40)
[2024-08-03] MEDS ORDERED: NA CHLORIDE 0.9% 100 ML ONE (10:41)
[2024-08-03] MEDS ORDERED: CLINDAMYCIN 900MG/D5W 900 MG/50 ML IVPB IV ONE (10:41)
[2024-08-03] MEDS ORDERED: NA CHLORIDE 0.9% 1,000 ML ONE (10:41)
[2024-08-03 10:58] LABS: Absolute Basophils 0.1 K/uL (0-0.5); Absolute Lymphocytes (CBC) 1.9 K/uL (0.7-4.9); Absolute Monocytes 1.2 K/uL (0.1-1.3); Absolute Neutrophil 10.3 K/uL (1.8-8.0); Basophils % 0.6 % (0-1.3); Eosinophils % 0.1 % (0-4.4); Hematocrit 44.3 % (39.6-49.0); Hemoglobin 14.9 g/dL (13.6-17.9); MCH 29.7 pg (27.0-35.0); MCHC 33.6 g/dL (32.0-36.0); MCV 88.6 fL (80-100); MPV 9.4 fL (7.6-11.3); Monocytes % 9.2 % (3.3-12.3); Neutrophils % 76.1 % (41.7-73.7); Platelets 219 thou/uL (152-406); Red Cell Distribution Width 12.7 % (12.1-15.2)
[2024-08-03 11:13] LABS: ALT/SGPT 23 U/L (16-61); Albumin 3.9 g/dL (3.4-5.0); Albumin/Globulin Ratio 0.9 (1.1-1.8); Alkaline Phosphatase 77 U/L (45-117); Anion Gap 8.1 mEq/L (5.0-15.0); BUN Blood Urea Nitrogen 14 mg/dL (7-18); Bicarbonate 31 mEq/L (21-32); Bilirubin Total 1.4 mg/dL (0.2-1.0); Globulin 4.2 g/dL (2.3-3.5); Glomerular Filtration Rate 103 ml/min (=/>90); Glucose Level 124 mg/dL (74-106); Potassium 4.1 mEq/L (3.5-5.1); Protein, Total 8.1 g/dL (6.4-8.2); Sodium Level 137 mEq/L (136-145)
[2024-08-03 11:21] LABS: AST/SGOT < 10 U/L (15-37)
[2024-08-03 11:30] LABS: Influenza A Ag Negative; Influenza B Ag Negative; SARS-CoV-2 Antigen Rapid Res Negative (Negative)
--- NOTE | 2024-08-03 12:54 | ER ---
Nurse's Notes [facility] Name: Ramón Mast Age: 28 yrs Sex: Male : 1995 Arrival Date: 08/03/2024 Time: 10:02 Bed 11 Private MD: Diagnosis: Acute tonsillitis, unspecified;Acute recurrent tonsillitis, unspecified;Impacted cerumen, bilateral;Elevated white blood cell count;Peritonsillar abscess-right;Tobacco abuse counseling;Tobacco use Presentation: 08/03 10:21 Chief complaint: Right sided throat swelling and pain x 5 days, on Amoxicillin day 3. hb Coronavirus screen: At this time, the client does not indicate any symptoms associated with coronavirus-19. Ebola Screen: No symptoms or risks identified at this time. Initial Sepsis Screen: Does the patient meet any 2 criteria? No. Patient's initial sepsis screen is negative. Does the patient have a suspected source of infection? No. Patient's initial sepsis screen is negative. Risk Assessment: Do you want to hurt yourself or someone else? Patient reports no desire to harm self or others. Onset of symptoms was July 29, 2024. 10:21 Method Of Arrival: Ambulatory hb 10:21 Acuity: VANESA 3 hb Triage Assessment: 13:16 General: Appears in no apparent distress. Behavior is calm, cooperative, appropriate ap3 for age. Historical: - Allergies: 10:22 No Known Allergies; hb - Home Meds: 10:22 None [Active]; hb - PMHx: 10:22 None; hb - PSHx: 10:22 None; hb - Immunization history:: Adult Immunizations up to date. - Infectious Disease History:: Denies. - Social history:: Smoking status: Reported history of juuling and/or vaping. Screenin:37 Abuse screen: Denies threats or abuse. Denies injuries from another. Nutritional ss screening: No deficits noted. Tuberculosis screening: Never had TB. 13:16 [facility] ED Fall Risk Assessment (Adult) History of falling in the last 3 months, ap3 including since admission No falls in past 3 months (0 pts) Confusion or Disorientation No (0 pts) Intoxicated or Sedated No (0 pts) Impaired Gait No (0 pts) Mobility Assist Device Used No (0 pt) Altered Elimination No (0 pt) Score/Fall Risk Level 0 - 2 = Low Risk Oriented to surroundings, Maintained a safe environment, Educated pt \T\ family on fall prevention, incl call for assistance when getting out of bed, Assessed \T\ reinforced patient's understanding of fall precautions, Hourly rounding (assess needs \T\ fall precautionary measures) done, Used ambulatory aids as needed (educated on \T\ assisted with). Assessment: 10:30 General: Appears in no apparent distress. comfortable, Behavior is calm, cooperative, ss Denies fever, feeling ill, fatigue, chills. Pain: Complains of pain in throat Pain currently is 10 out of 10 on a pain scale. Neuro: Level of Consciousness is awake, alert, obeys commands, Oriented to person, place, time. Respiratory: Airway is patent Respiratory effort is even, unlabored, Respiratory pattern is regular, symmetrical. GI: Patient currently denies diarrhea, nausea, vomiting. EENT: Reports pain when swallowing. Derm: Skin is pink, warm \T\ dry. normal. 12:00 Reassessment: To CT now. ss 12:36 Reassessment: Patient appears in no apparent distress at this time. Patient and/or ss family updated on plan of care and expected duration. Pain level reassessed. Patient is alert, oriented x 3, equal unlabored respirations, skin warm/dry/pink. awaiting CT results. 13:10 Reassessment: Patient and/or family updated on plan of care and expected duration. Pain ap3 level reassessed. Patient is alert, oriented x 3, equal unlabored respirations, skin warm/dry/pink. 13:15 Pain: Complains of pain in throat. Respiratory: Airway is patent Respiratory effort is ap3 even, unlabored. EENT: Throat with gag reflex present. 13:18 General: awaiting provider to see patient prior to patients departure from ED. ap3 Vital Signs: 10:21 BP 142 / 81; Pulse 82; Resp 16; Temp 98.9(O); Pulse Ox 100% on R/A; Weight 117.93 kg; hb Height 6 ft. 2 in. ; Pain 10; 13:09 BP 136 / 63; Pulse 79; Resp 18; Pulse Ox 99% on R/A; ap3 10:21 Body Mass Index 33.38 (117.93 kg, 187.96 cm) hb 10:21 Pain Scale: Adult hb ED Course: 10:05 Patient arrived in ED. cj3 10:06 Joseph Roca MD is Attending Physician. roma 10:22 Triage completed. hb 10:22 Arm band placed on. hb 10:46 Initial lab(s) drawn, by me, sent to lab. Inserted saline lock: 20 gauge in right zm antecubital area, using aseptic technique. Blood collected. Flushed with 10 mL NS. 10:47 Comprehensive Metabolic Panel Sent. zm 10:47 CBC with Diff Sent. zm 10:47 Group A Streptococcus Rapid Sent. zm 10:47 COVID-19 Ag + Flu A+B Ag Sent. zm 11:07 Elle Ramirez, ANA is Primary Nurse. ss 12:02 Soft Tissue Neck W/Contr CT In Process Unspecified. EDMS 12:37 Patient has correct armband on for positive identification. ss 12:53 Amy Aldridge MD is Referral Physician. roma 12:57 Referral Physician role handed off by Amy Aldridge MD roma 12:58 Amy Aldridge MD is Referral Physician. roma 13:16 Provided Education on: discharge instructions. ap3 13:16 No provider procedures requiring assistance completed. IV discontinued, intact, ap3 bleeding controlled, No redness/swelling at site. Pressure dressing applied. Administered Medications: 10:22 CANCELLED (Duplicate Order): [id number] mg PO once roma 10:59 Drug: NS 0.9% IV 1000 ml IV at 1000 ml once; to be given as a bolus over 60 minutes ss Route: IV; Rate: 1000 ml; Site: right antecubital; 13:10 Follow up: IV Status: Completed infusion ap3 11:00 Drug: Ketorolac IVP 15 mg IVP once Route: IVP; Site: right antecubital; ss 13:11 Follow up: Response: No adverse reaction ap3 11:02 Drug: Ondansetron IVP 4 mg IVP once; over 2 minutes Route: IVP; Site: right antecubital;ss 13:10 Follow up: Response: No adverse reaction ap3 11:04 Drug: Decadron - Dexamethasone IVP 10 mg IVP once Route: IVP; Site: right antecubital; ss 13:10 Follow up: Response: No adverse reaction ap3 11:06 Drug: Famotidine IVP 20 mg IVP once; dilute with 10 mL 0.9% NaCl; give over 2 minutes ss Route: IVP; Site: right antecubital; 13:11 Follow up: Response: No adverse reaction ap3 11:07 Drug: Rocephin - Rocephin (cefTRIAXone) IVPB 2 grams IVPB once over 30 mins; (mix in ss 100 mL NS) Route: IVPB; Infused Over: 30 mins; Site: right antecubital; 11:54 Follow up: IV Status: Completed infusion ss 11:07 Not Given (changed to 15 mg): [id number] mg IVP once ss 11:54 Drug: Clindamycin IVPB 900 mg IVPB once over 30 mins; (mix in 50 mL) Route: IVPB; ss Infused Over: 30 mins; Site: right antecubital; 13:10 Follow up: IV Status: Completed infusion ap3 13:09 Drug: Decadron - Dexamethasone IVP 10 mg IVP once Route: IVP; Site: right antecubital; ap3 13:17 Follow up: Response: No adverse reaction; Medication administered at discharge. ap3 Medication: 13:16 VIS not applicable for this client. ap3 Outcome: 12:53 Discharge ordered by MD. brandon 13:17 Condition: good ap3 13:17 Discharge instructions given to patient, Instructed on discharge instructions, follow ap3 up and referral plans. medication usage, Demonstrated understanding of instructions, follow-up care, medications, Prescriptions given X 3, 13:24 Discharged to home ambulatory, with family, ap3 13:24 Patient left the ED. ap3 Signatures: Dispatcher [employer] EDNY Joseph Roca MD MD cha Blanchard, Shelby, RN RN Lisbeth Schultz RN RN hb Prokisch, Amanda, RN RN ap3 Keyla Marcum Celeste 3
--- NOTE | 2024-08-03 12:54 | EDPHYS ---
Physician Documentation [facility] Name: Ramón Mast Age: 28 yrs Sex: Male : 1995 Arrival Date: 08/03/2024 Time: 10:02 Bed 11 Private MD: ED Physician Joseph Roca HPI: 08/03 10:30 This 28 yrs old Male presents to ER via Ambulatory with complaints of Sore roma Throat. 10:30 The patient presents with sore throat, dysphagia, of solids. The patient describes roma throat pain as constant, dry, raw. Onset: The symptoms/episode began/occurred 5 day(s) ago. Severity of symptoms: At their worst the symptoms were moderate, in the emergency department the symptoms are actually worse. Modifying factors: The symptoms are alleviated by nothing, the symptoms are aggravated by swallowing. Associated signs and symptoms: The patient has no apparent associated signs or symptoms. Unable to obtain HPI due to hoarse voice. Historical: - Allergies: 10:22 No Known Allergies; hb - Home Meds: 10:22 None [Active]; hb - PMHx: 10:22 None; hb - PSHx: 10:22 None; hb - Immunization history:: Adult Immunizations up to date. - Infectious Disease History:: Denies. - Social history:: Smoking status: Reported history of juuling and/or vaping. ROS: 10:34 Constitutional: Negative for fever, chills, and weight loss, Eyes: Negative for injury, roma pain, redness, and discharge, Neck: Negative for injury, pain, and swelling, Cardiovascular: Negative for chest pain, palpitations, and edema, Respiratory: Negative for shortness of breath, cough, wheezing, and pleuritic chest pain, Abdomen/GI: Negative for abdominal pain, nausea, vomiting, diarrhea, and constipation, Back: Negative for injury and pain, : Negative for injury, bleeding, discharge, and swelling, MS/Extremity: Negative for injury and deformity, Skin: Negative for injury, rash, and discoloration, Neuro: Negative for headache, weakness, numbness, tingling, and seizure, Psych: Negative for depression, anxiety, suicide ideation, homicidal ideation, and hallucinations, Allergy/Immunology: Negative for hives, rash, and allergies, Endocrine: Negative for neck swelling, polydipsia, polyuria, polyphagia, and marked weight changes, Hematologic/Lymphatic: Negative for swollen nodes, abnormal bleeding, and unusual bruising, 10:34 ENT: Positive for sore throat, Exam: 10:34 Constitutional: This is a well developed, well nourished patient who is awake, alert, roma and in no acute distress. Head/Face: Normocephalic, atraumatic. Eyes: Pupils equal round and reactive to light, extra-ocular motions intact. Lids and lashes normal. Conjunctiva and sclera are non-icteric and not injected. Cornea within normal limits. Periorbital areas with no swelling, redness, or edema. Neck: Trachea midline, no thyromegaly or masses palpated, and no cervical lymphadenopathy. Supple, full range of motion without nuchal rigidity, or vertebral point tenderness. No Meningismus. Chest/axilla: Normal chest wall appearance and motion. Nontender with no deformity. No lesions are appreciated. Cardiovascular: Regular rate and rhythm with a normal S1 and S2. No gallops, murmurs, or rubs. Normal PMI, no JVD. No pulse deficits. Respiratory: Lungs have equal breath sounds bilaterally, clear to auscultation and percussion. No rales, rhonchi or wheezes noted. No increased work of breathing, no retractions or nasal flaring. Abdomen/GI: Soft, non-tender, with normal bowel sounds. No distension or tympany. No guarding or rebound. No evidence of tenderness throughout. Back: No spinal tenderness. No costovertebral tenderness. Full range of motion. Skin: Warm, dry with normal turgor. Normal color with no rashes, no lesions, and no evidence of cellulitis. MS/ Extremity: Pulses equal, no cyanosis. Neurovascular intact. Full, normal range of motion., bilateral aka Neuro: Awake and alert, GCS 15, oriented to person, place, time, and situation. Cranial nerves II-XII grossly intact. Motor strength 5/5 in all extremities. Sensory grossly intact. Cerebellar exam normal. Normal gait. Psych: Awake, alert, with orientation to person, place and time. Behavior, mood, and affect are within normal limits. 10:34 ENT: Posterior pharynx: Tonsils: are normal in appearance, Uvula: normal, swelling, is not appreciated, erythema, that is mild, that is moderate, exudate, is not appreciated, peritonsillar mass, fulliness, Vital Signs: 10:21 BP 142 / 81; Pulse 82; Resp 16; Temp 98.9(O); Pulse Ox 100% on R/A; Weight 117.93 kg; hb Height 6 ft. 2 in. ; Pain 10; 13:09 BP 136 / 63; Pulse 79; Resp 18; Pulse Ox 99% on R/A; ap3 10:21 Body Mass Index 33.38 (117.93 kg, 187.96 cm) hb 10:21 Pain Scale: Adult hb MDM: 10:06 Medical Screening Exam initiated roma 10:35 Differential diagnosis: cocksackie virus, echovirus infection, epiglottitis, group A roma strep tonsillitis, influenza, laryngitis, peritonsillar abscess chlamydia pharyngitis, neisseria gonorrheoeae pharangitis, pharyngitis, retropharyngeal abcess squamous cell carcinoma tonsillitis, tracheobronchitis, upper respiratory infection, uvulitis, viral syndrome. Data reviewed: vital signs, nurses notes, lab test result(s), radiologic studies, CT scan. Consideration of Admission/Observation Escalation of care including admission/observation considered. I considered the following discharge prescriptions or medication management in the emergency department Medications were administered in the Emergency Department. See MAR. Independent interpretation of the following test(s) in the Emergency Department CT Scan: My interpretation is ct soft tissue. Care significantly affected by the following chronic conditions: Obesity, vaper. 08/03 10:09 Order name: COVID-19 Ag + Flu A+B Ag; Complete Time: 11:39 [facility] 08/03 10:09 Order name: Group A Streptococcus Rapid; Complete Time: 11:39 roma 08/03 10:26 Order name: CBC with Diff; Complete Time: 11:39 [facility] 08/03 10:26 Order name: Comprehensive Metabolic Panel; Complete Time: 11:39 [facility] 08/03 12:18 Order name: Throat Culture EDSD 08/03 11:45 Order name: Soft Tissue Neck W/Contr CT; Complete Time: 13:20 roma Administered Medications: 10:22 CANCELLED (Duplicate Order): [id number] mg PO once roma 10:59 Drug: NS 0.9% IV 1000 ml IV at 1000 ml once; to be given as a bolus over 60 minutes ss Route: IV; Rate: 1000 ml; Site: right antecubital; 13:10 Follow up: IV Status: Completed infusion ap3 11:00 Drug: Ketorolac IVP 15 mg IVP once Route: IVP; Site: right antecubital; ss 13:11 Follow up: Response: No adverse reaction ap3 11:02 Drug: Ondansetron IVP 4 mg IVP once; over 2 minutes Route: IVP; Site: right antecubital;ss 13:10 Follow up: Response: No adverse reaction ap3 11:04 Drug: Decadron - Dexamethasone IVP 10 mg IVP once Route: IVP; Site: right antecubital; ss 13:10 Follow up: Response: No adverse reaction ap3 11:06 Drug: Famotidine IVP 20 mg IVP once; dilute with 10 mL 0.9% NaCl; give over 2 minutes ss Route: IVP; Site: right antecubital; 13:11 Follow up: Response: No adverse reaction ap3 11:07 Drug: Rocephin - Rocephin (cefTRIAXone) IVPB 2 grams IVPB once over 30 mins; (mix in ss 100 mL NS) Route: IVPB; Infused Over: 30 mins; Site: right antecubital; 11:54 Follow up: IV Status: Completed infusion ss 11:07 Not Given (changed to 15 mg): mg IVP once ss 11:54 Drug: Clindamycin IVPB 900 mg IVPB once over 30 mins; (mix in 50 mL) Route: IVPB; ss Infused Over: 30 mins; Site: right antecubital; 13:10 Follow up: IV Status: Completed infusion ap3 13:09 Drug: Decadron - Dexamethasone IVP 10 mg IVP once Route: IVP; Site: right antecubital; ap3 13:17 Follow up: Response: No adverse reaction; Medication administered at discharge. ap3 Disposition Summary: 08/03/24 12:53 Discharge Ordered Notes: Location: Home roma Problem: new roma Symptoms: have improved roma Condition: Stable roma Diagnosis - Acute tonsillitis, unspecified roma - Acute recurrent tonsillitis, unspecified roma - Impacted cerumen, bilateral roma - Elevated white blood cell count roma - Peritonsillar abscess - right roma - Tobacco abuse counseling roma - Tobacco use roma Followup: roma - With: Private Physician - When: 2 - 3 days - Reason: Recheck today's complaints, Continuance of care, Re-evaluation by your physician Followup: roma - With: Amy Aldridge MD - When: 2 - 3 days - Reason: Recheck today's complaints, Re-evaluation by your physician Followup: roma - With: Amy Aldridge MD - When: Upon discharge from the Emergency Department - Reason: Recheck today's complaints, Re-evaluation by your physician Discharge Instructions: - Discharge Summary Sheet roma - Peritonsillar Abscess roma - Tonsillitis roma - Upper Respiratory Infection, Adult roma - Tonsillitis, [id number] roma Forms: - Medication Reconciliation Form roma - Antibiotic Education roma - Prescription Opioid Use roma - Patient Portal Instructions roma - Leadership Thank You Letter roma Prescriptions: - Debrox 6.5 % Otic drops - instill 5 drop OTIC route per package directions; 10 milliliter; Refills: 0, [facility] Product Selection Permitted - Clindamycin HCl 300 mg Oral Capsule - take 1 capsule ORAL route every 6 hours for 10 days; 40 capsule; Refills: 0, [facility] Product Selection Permitted - Dexamethasone 4mg Oral tablet - take 1 tablet ORAL route daily for 3 days; 3 tablet; Refills: 0, Product [facility] Selection Permitted Signatures: Dispatcher [employer] EDJoseph Haile MD MD cha Blanchard, Shelby, RN RN ss Baxter, Heather, RN RN Jessica Menard RN RN ap3 Corrections: (The following items were deleted from the chart) 10:22 10:09 AZITHromycin PO 500 mg PO once ordered. roma brandon
--- NOTE | 2024-08-03 12:59 | RAD REPORT ---
EXAM: CT Soft Tissue Neck W/Contr INDICATION: Swelling;Sore throat;Pain TECHNIQUE: Helical CT examination of the neck with IV contrast. Sagittal and coronal reformations wer e generated. This exam was performed according to our departmental dose-optimization program, which includes automated exposure control, adjustment of the mA and/or kV according to patient size and/or use of iterative reconstruction technique. COMPARISON: None. FINDINGS: Mucosal spaces: Inflammatory changes with mucosal thickening centered on the right palatine tonsillar fossa, with an ill-defined fluid collection measuring 1.9 x 1.4 x 1.0 cm. Fat stranding encroaching upon the right parapharyngeal space. Soft tissue swelling effaces the right vallecula and pyriform sinus. Inflammatory changes extend to the level of the supraglottic larynx on the right. Retropharyngeal space is mildly effaced, although not directly involved. Oropharynx, oral cavity, and larynx are otherwise normal. No suspicious masses. Epiglottis is normal in configuration. True vocal cords cords are normally situated. Lymph Nodes: Prominent deep cervical lymph nodes, largest at level 2A on the right measuring 1.5 cm i n short axis. . Salivary Glands: Unremarkable. Thyroid Gland: Normal Included Intracranial Structures: Normal Included Orbits: Normal Paranasal Sinuses: Predominantly clear Tympanomastoid Cavities: Normal Vascular Structures: Normal Osseous Structures: No acute osseous abnormality. Included Lung Apices: Normal IMPRESSION: Inflammatory changes centered on the right palatine tonsil, with a peritonsillar ill-defined fluid co llection up to 1.9 cm in greatest dimension, suggesting early abscess formation. Reactive lymphadenopathy throughout the right deep cervical stations. THIS REPORT CONTAINS FINDINGS THAT MAY BE CRITICAL TO PATIENT CARE. The findings were verbally commun icated via telephone to Joseph Roca MD on 08/03/2024 12:56 PM.
[2024-08-03 13:47] VITALS: TEMP 98.9
[2024-08-03 13:52] VITALS: BP 136/63; O2SAT 99
== END 2024-08-03 13:24 | disposition home or self-care (01) ==
LOC: ER 10:02
DX: J03.91 Acute recurrent tonsillitis, unspecified (principal); H61.23 Impacted cerumen, bilateral; D72.829 Elevated white blood cell count, unspecified; Z72.0 Tobacco use; Z71.6 Tobacco abuse counseling; Z11.52 Encounter for screening for COVID-19
CPT/HCPCS: 96365; 96367; 87070; 85025; 36415; 80053; 70491; 96375; 99284; 87428; Q9967; J1100 ×2; J2405; J0696; J7030